=== PATIENT | male | born 1990 | race Caucasian/White ===

== ENCOUNTER 2023-01-11 19:28 | Emergency (ER) | payer OTHER ==
[2023-01-11 19:34] VITALS: RESP 18; TEMP 98.1; BMI 31.9
[2023-01-11 21:38] LABS: BASO % 0.3 % (0-2.0); EOS % 1.4 % (0-4.5); HEMATOCRIT 47.7 % (35.4-49); HEMOGLOBIN 15.8 GM/dL (11.7-16.9); LYMPH % 26.6 % (8-40); MCH 26.9 pg (25.7-33.7); MCHC 33.2 g/dl (32.0-35.9); MEAN PLT VOLUME 8.2 fl (7.5-11.1); MONO % 8.6 % (3.8-10.2); NEUT % 63.1 % (42.8-82.8); PLATELET COUNT 286 10^3/uL (134-434); RDW 13.1 % (11.9-15.9); WHITE BLOOD COUNT 7.6 K/mm3 (4.0-10.0)
[2023-01-11 22:05] LABS: ALBUMIN 4.2 g/dl (3.4-5.0); BLOOD UREA NITROGEN 8.1 mg/dL (7-18); CALCIUM 9.4 mg/dL (8.5-10.1); MAGNESIUM 2.1 mg/dL (1.8-2.4)
[2023-01-11 22:08] LABS: CREATININE 0.7 mg/dL (0.55-1.3); PHOSPHOROUS 4.2 mg/dL (2.5-4.9)
[2023-01-11 22:10] LABS: BILIRUBIN,TOTAL 0.7 mg/dL (0.2-1)
[2023-01-11 23:24] VITALS: BP 118/68; PULSE 65
== END 2023-01-12 00:30 | disposition home or self-care (01) ==
LOC: JER 19:28
DX: R20.2 Paresthesia of skin (principal); R74.01 Elevation of levels of liver transaminase levels
CPT/HCPCS: 36415; 71046-TC-FY; 76705-TC; 80053; 83735; 84100; 84443; 84484; 85025; 93005; 93010; 99285-25